=== PATIENT | female | born 1985 | race Caucasian/White ===

== ENCOUNTER 2016-09-05 20:54 | Emergency (ER) | payer OTHER ==
[~2016-09-05] VITALS: Ht 165.1 cm; Wt 87.9 kg
[~2016-09-05 20:54] MED LIST: ALBUAER2 INH; B-COCAP2 PO; CHOL100010 PO; MOME100A INH; MONT1TAB3 PO; MULT-506 PO; SERT-234 PO
[2016-09-05 20:56] VITALS: TEMP 36.6; Ht 165.1 cm; Wt 87.9 kg
[2016-09-05] MEDS ORDERED: DICY20TA35 PO (21:17)
[2016-09-05] MEDS ORDERED: CHOL1TAB42 PO (21:19)
[2016-09-05] MEDS ORDERED: VITATAB19 PO (21:20)
[2016-09-05] MEDS ORDERED: FEXO1TAB49 PO (21:22)
[2016-09-05] MEDS ORDERED: CYAN1LOZ2 PO (21:25)
[2016-09-05] MEDS ORDERED: SODIUM CHLORIDE 0.9% 1000ML 1,000 ML IV STA (21:28)
[2016-09-05] MEDS ORDERED: ONDANSETRON INJ 2 MG/ML 2 ML VIAL IV STA (21:28)
[2016-09-05 21:59] LABS: BASO % 0.6 %; BASO ABS # 0.04 K/uL (0-0.2); COMPLETE YES; EOS % 3.6 %; HEMATOCRIT 37.2 % (37-47); IG% 0.2 %; LYMPH % 38.7 %; LYMPH ABS # 2.48 K/uL (1.2-3.4); MEAN CORPUSCULAR HEMOGLOBIN 28.8 pg (25-34); MEAN CORPUSCULAR HGB CONC 34.7 g/dl (32-36); MEAN PLATELET VOLUME 9.1 fL (7.4-10.4); MONO % 9.7 %; NEUT % 47.2 %; PLATELET COUNT 221 K/uL (130-400); RED BLOOD COUNT 4.48 M/uL (4.2-5.4); WHITE BLOOD COUNT 6.41 K/uL (4.8-10.8)
[2016-09-05 22:10] LABS: URINE APPEARANCE CLEAR (CLEAR); URINE BILIRUBIN NEG (NEG); URINE COLOR YELLOW; URINE EPITHELIAL CELL AUTO >30 /lpf (0-5); URINE NITRITE NEG (NEG); URINE SPECIFIC GRAVITY 1.017 (1.000-1.030); UROBILINOGEN NEG (NEG)
[2016-09-05 22:14] LABS: BUN/CREATININE RATIO 23.4 (10-20); CALCIUM 8.5 mg/dl (8.5-10.1); CREATININE 0.61 mg/dl (0.60-1.20); POTASSIUM 4.2 mmol/L (3.5-5.1)
[2016-09-05 22:16] LABS: PREG INTERNAL NEGATIVE QC NEG CLEAR BACKGROUND; PREG INTERNAL POSITIVE QC POS CONTROL LINE
[2016-09-05 22:17] LABS: MANUAL MICROSCOPIC REQUIRED? NO; REVIEW REQ? NO
[2016-09-06] MEDS ORDERED: ONDANSETRON HOME PACK 4MG OD TAB PO ONE (00:45)
[2016-09-06] MEDS ORDERED: OXYCODONE IR HOME PACK PO ONE (00:45)
[2016-09-06 00:56] VITALS: BP 113/73; PULSE 62; O2SAT 99
--- NOTE | 2016-09-06 07:02 | DIAGNOSTIC IMAGING REPORT ---
APPENDIX ULTRASOUND HISTORY: right sided abdominal pain COMPARISON: None. FINDINGS: Transabdominal scanning of the right lower quadrant was performed. The appendix was not identified. There are no fluid collections or masses within the right lower quadrant. IMPRESSION: The appendix was not identified. Electronically signed by: Kurt So M.D. 09/06/2016 7:01 AM Dictated Date/Time: 09/06/2016 7:01 AM
--- NOTE | 2016-09-06 07:05 | DIAGNOSTIC IMAGING REPORT ---
PELVIC ULTRASOUND, TRANSABDOMINAL AND TRANSVAGINAL HISTORY: right adnexal pain COMPARISON: None. FINDINGS: Uterus: 5.9 x 4.5 x 2.9 cm. Endometrial stripe: An intrauterine device is in good position. Endometrial stripe measures 8 mm in thickness. Right ovary: Normal in size and demonstrates normal color flow. A 2.2 cm thick-walled cyst. This favors a corpus luteum. Left ovary: Normal in size and demonstrates normal color flow. Miscellaneous:Trace pelvic free fluid. IMPRESSION: 1. The intrauterine device is in good position. 2. A 2.2 cm thick-walled cyst within the right ovary. This favors a corpus luteum. Electronically signed by: Kurt So M.D. 09/06/2016 7:04 AM Dictated Date/Time: 09/06/2016 7:01 AM
--- NOTE | 2016-09-06 15:48 | EMERGENCY ROOM VISIT NOTE ---
History Report prepared by Manny: Nathaly Natarajan Under the Supervision of: Dr. Davy Moore D.O. First contact with patient: 21:07 Chief Complaint: ABDOMINAL PAIN Stated Complaint: ABD CRAMPING History of Present Illness The patient is a 31 year old female who presents to the Emergency Room with complaints of worsening right sided abdominal cramping with onset this evening. She rates her pain as a 2/10. The patient notes that the abdominal cramping lasted about five minutes and that the pain is now mild. The patient has had similar episodes of abdominal cramping for the past 9 months. The patient states that her doctor told her that if the episodes became more severe, that she should be evaluated in the ED. Her doctors are currently unsure of what is causing this abdominal pain. The patient notes that she has had a colonoscopy, and endoscopy. She has seen her OB as she has a Mirena in place. The patient has had ultrasounds of her uterus. The patient has a history of gastric bypass in 2013. The patient denies vaginal discharge, unusual bleeding, any unusual urination, fevers, blood in her urine. Source of History: patient Onset: this evening Position: abdomen Symptom Intensity: 2/10 Quality: cramping Timing: worsening Associated Symptoms: No fevers Note: The patient denies vaginal discharge, unusual bleeding, any unusual urination, blood in her urine. Review of Systems See HPI for pertinent positives & negatives. A total of 10 systems reviewed and were otherwise negative. Past Medical & Surgical Medical Problems: (1) Anxiety (2) Asthma Family History Diabetes mellitus FH: lupus Graves' disease Maggie thyroiditis Social History Smoking Status: Never Smoker Alcohol Use: none Drug Use: none Marital Status: single Occupation Status: employed Current/Historical Medications Scheduled Cholecalciferol (Vitamin D), 5,000 UNITS PO DAILY Cyanocobalamin (Vitamin B 12), 250 MCG PO DAILY Fexofenadine Hcl (Alee Allergy), 180 MG PO DAILY Multivitamin (Multivitamin), 1 TAB PO DAILY Sertraline (Zoloft), 100 MG PO DAILY Vitamin A-Beta Carotene (Vitamin A), 1 TAB PO DAILY Scheduled PRN Albuterol (Ventolin), 2 PUFFS INH QID PRN for SOB/Wheezing Dicyclomine Hcl (Bentyl), 20 MG PO QID PRN for SPASMS Allergies Coded Allergies: No Known Allergies (Unverified , 12/06/15) Physical Exam Vital Signs Date Time Temp Pulse Resp B/P Pulse Ox O2 Delivery O2 Flow Rate FiO2 09/06/16 00:56 62 18 113/73 99 09/05/16 22:10 59 09/05/16 22:01 60 18 102/64 98 Room Air 09/05/16 20:56 36.6 71 18 125/82 98 Room Air Physical Exam GENERAL: Patient is awake alert in no acute distress patient is resting comfortably and showing no signs of anxiety EYES: The conjunctivae are clear. The pupils are round and reactive. EARS, NOSE, MOUTH AND THROAT: The nose is without any evidence of any deformity. Mucous membranes are moist tongue is midline NECK: The neck is nontender and supple. RESPIRATORY: Normal respiratory effort is noted there is no evidence of wheezing rhonchi or rales CARDIOVASCULAR: Regular rate and rhythm noted there no murmurs rubs or gallops normal S1 normal S2 GASTROINTESTINAL: The abdomen is soft, there was right suprapubic tenderness to palpation, no guarding or rigidity. BACK: No midline tenderness or or step-off noted range of motion in flexion extension as well as rotation no signs of muscle spasm noted MUSCULOSKELETAL/EXTREMITIES: There is no evidence of gross deformity full range of motion is noted in the hips and shoulders SKIN: There is no obvious evidence of any rash. There are no petechiae, pallor or cyanosis noted. NEUROLOGIC: Patient is awake alert and oriented x3. Medical Decision & Procedures ER Provider Diagnostic Interpretation: Radiology results as stated below per my review and radiologist interpretation: US Pelvic/Endovag: An IUD is seen in the uterus. Endometrial stripe is 8 mm in thickness. Left ovary is unremarkable. There is a slightly hypoechoic complex lesion in the right ovary measuring 2.2 cm in maximum dimension. This is nonspecific. It probably represents a hemorrhagic cyst. Corpus luteal cyst and ectopic are considered less likely. However, if ectopic is of high clinical concern, correlation with beta hCG is essential. Mild free fluid in this is nonspecific. It could be due to physiologic change. Radiologist: Henri Dietrich MD. US Appendix: Appendix not seen. This does not rule out the possibility of acute appendicitis. If CT is ultimately performed, long oral preparation to ensure adequate opacification of the cecum is highly recommended. Radiologist: Henri Dietrich MD. Laboratory Results 09/05/16 21:45 Red Blood Count 4.48, Mean Corpuscular Volume 83.0, Mean Corpuscular Hemoglobin 28.8, Mean Corpuscular Hemoglobin Concent 34.7, Mean Platelet Volume 9.1, Neutrophils (%) (Auto) 47.2, Lymphocytes (%) (Auto) 38.7, Monocytes (%) (Auto) 9.7, Eosinophils (%) (Auto) 3.6, Basophils (%) (Auto) 0.6, Neutrophils # (Auto) 3.03, Lymphocytes # (Auto) 2.48, Monocytes # (Auto) 0.62, Eosinophils # (Auto) 0.23, Basophils # (Auto) 0.04 09/05/16 21:45 Test 09/05/16 21:45 White Blood Count 6.41 K/uL (4.8-10.8) Red Blood Count 4.48 M/uL (4.2-5.4) Hemoglobin 12.9 g/dL (12.0-16.0) Hematocrit 37.2 % (37-47) Mean Corpuscular Volume 83.0 fL (80-100) Mean Corpuscular Hemoglobin 28.8 pg (25-34) Mean Corpuscular Hemoglobin Concent 34.7 g/dl (32-36) Platelet Count 221 K/uL (130-400) Mean Platelet Volume 9.1 fL (7.4-10.4) Neutrophils (%) (Auto) 47.2 % Lymphocytes (%) (Auto) 38.7 % Monocytes (%) (Auto) 9.7 % Eosinophils (%) (Auto) 3.6 % Basophils (%) (Auto) 0.6 % Neutrophils # (Auto) 3.03 K/uL (1.4-6.5) Lymphocytes # (Auto) 2.48 K/uL (1.2-3.4) Monocytes # (Auto) 0.62 K/uL (0.11-0.59) Eosinophils # (Auto) 0.23 K/uL (0-0.5) Basophils # (Auto) 0.04 K/uL (0-0.2) RDW Standard Deviation 36.5 fL (36.4-46.3) RDW Coefficient of Variation 12.0 % (11.5-14.5) Immature Granulocyte % (Auto) 0.2 % Immature Granulocyte # (Auto) 0.01 K/uL (0.00-0.02) Urine Color YELLOW Urine Appearance CLEAR (CLEAR) Urine pH 5.0 (4.5-7.5) Urine Specific [place] 1.017 (1.000-1.030) Urine Protein NEG (NEG) Urine Glucose (UA) NEG (NEG) Urine Ketones NEG (NEG) Urine Occult Blood NEG (NEG) Urine Nitrite NEG (NEG) Urine Bilirubin NEG (NEG) Urine Urobilinogen NEG (NEG) Urine Leukocyte Esterase SMALL (NEG) Urine WBC (Auto) 1-5 /hpf (0-5) Urine RBC (Auto) 0-4 /hpf (0-4) Urine Hyaline Casts (Auto) 1-5 /lpf (0-5) Urine Epithelial Cells (Auto) >30 /lpf (0-5) Urine Bacteria (Auto) NEG (NEG) Anion Gap 4.0 mmol/L (3-11) Est Creatinine Clear Calc Drug Dose 147.7 ml/min Estimated GFR () 141.0 Estimated GFR (Non- 121.7 BUN/Creatinine Ratio 23.4 (10-20) Calcium Level 8.5 mg/dl (8.5-10.1) Total Bilirubin 0.3 mg/dl (0.2-1) Direct Bilirubin 0.1 mg/dl (0-0.2) Aspartate Amino Transf (AST/SGOT) 25 U/L (15-37) Alanine Aminotransferase (ALT/SGPT) 37 U/L (12-78) Alkaline Phosphatase 103 U/L (45-117) Total Protein 7.1 gm/dl (6.4-8.2) Albumin 3.3 gm/dl (3.4-5.0) Lipase 257 U/L (73-393) Human Chorionic Gonadotropin, Qual NEG (NEG) Laboratory results per my review. Medications Administered Medications (Trade) Dose Ordered Sig/Ric Route Start Time Stop Time Status Last Admin Dose Admin Sodium Chloride (Nss 1000ml) 1,000 ml @ 999 mls/hr Q1H1M STAT IV 09/05/16 21:28 09/05/16 22:28 DC 09/05/16 21:52 999 MLS/HR Ondansetron HCl (Zofran Inj) 4 mg NOW STAT IV 09/05/16 21:28 09/05/16 21:30 DC 09/05/16 21:52 4 MG Oxycodone HCl (Roxicodone Immediate Rel 5MG Home Pack) 1 homepack UD ONCE PO 09/06/16 00:45 09/06/16 00:46 DC 09/06/16 00:55 1 HOMEPACK Ondansetron HCl (ZOFRAN ODT 4MG Home Pack) 1 homepack UD ONCE PO 09/06/16 00:45 09/06/16 00:46 DC 09/06/16 00:55 1 HOMEPACK ED Course 2128: The patient was evaluated in room B2. A complete history and physical examination were performed. 2127: Zofran 4 mg IV, NSS 1,000 ml @ 999 mls/hr IV 0039: Upon reevaluation, the patient is feeling better. I discussed the results and treatment plan with the patient. She verbalized agreement of the treatment plan. The patient was discharged home. 5: Zofran 4 mg 1 homepack PO, Oxycodone HCl 5 mg 1 homepack PO Medical Decision Differential diagnosis: Etiologies such as appendicitis, diverticulitis, PUD, biliary pathology, UTI, pancreatitis, obstruction, mesenteric ischemia, aortic pathology, infections, inflammatory bowel disease, renal colic, as well as others were entertained. Nursing notes reviewed. The patient is a 31-year-old female who is had intermittent pelvic pain over the last few months. She's been seen by her primary care physician as well as her primary [facility] physician. She has a follow-up appointment scheduled with a surgeon. The patient states that she has had a CAT scan of the abdomen and pelvis in the past with no answer. The patient's abdominal exam was not consistent with an acute surgical abdomen. She was treated with IV fluids and IV antiemetics emergency department. On subsequent reevaluation she was feeling much better. I discussed the patient's laboratory and radiographic studies with her. She was encouraged to rest and avoid any strenuous activity. She was also encouraged to continue all medications as prescribed and follow-up with her primary care physician as soon as possible. She was also encouraged return to the emergency apartment immediately if symptoms change worsen or the need arises. Impression Primary Impression: Right ovarian cyst Scribe Attestation The scribe's documentation has been prepared under my direction and personally reviewed by me in its entirety. I confirm that the note above accurately reflects all work, treatment, procedures, and medical decision making performed by me. Departure Information Dispostion Home / Self-Care Referrals Rashmi Hernandez PA-C (PCP) Forms Call Back Authorization, HOME CARE DOCUMENTATION FORM, IMPORTANT VISIT INFORMATION Patient Instructions ED Cyst Ovarian, [facility] Additional Instructions Follow-up with the surgeon as scheduled. Rest and avoid any strenuous activity. Call your primary [facility] physician to schedule a follow-up appointment. Rest and avoid any strenuous activity. Return to the emergency department immediately if symptoms change worsen or the need arises. Continue all medications as prescribed. Continue using Motrin and Tylenol as directed for pain.
== END 2016-09-06 00:58 | disposition home or self-care (01) ==
LOC: C.EDB 20:55
DX: N83.201 Unspecified ovarian cyst, right side (principal); F41.9 Anxiety disorder, unspecified; J45.909 Unspecified asthma, uncomplicated